=== PATIENT | female | born 2005 | race Hispanic/Latino ===

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

== ENCOUNTER 2025-02-09 14:45 | Outpatient (CLI) | payer OTHER | END 2025-02-09 14:46 | disposition home or self-care (01) | LOC: SCSRAD 14:45 | PROVIDERS: ATTEND Student in an Organized Health Care Education/Training Program | DX: M54.50 Low back pain, unspecified (principal); M21.061 Valgus deformity, not elsewhere classified, right knee; M21.062 Valgus deformity, not elsewhere classified, left knee; M41.9 Scoliosis, unspecified | CPT/HCPCS: 72081 ==